=== PATIENT | male | born 1960 | race Caucasian/White ===

== ENCOUNTER 2019-01-20 10:05 | Emergency (ER) | payer OTHER ==
[2019-01-20] MEDS ORDERED: NA CHLORIDE 0.9% 1,000 ML ONE ×3 (10:49→12:42)
[2019-01-20 10:58] LABS: Absolute Lymphocytes (CBC) 2.5 K/uL (0.7-4.9); Basophils % 0.5 % (0-1.3); Hematocrit 40.3 % (39.6-49.0); MPV 9.2 fL (7.6-11.3); RBC Red Blood Cell Count 5.14 M/uL (4.33-5.43)
[2019-01-20 10:59] LABS: Protime INR 1.24
--- NOTE | 2019-01-20 11:13 | RAD REPORT ---
EXAM DESCRIPTION: [place] Single View01/20/2019 10:40 am CLINICAL HISTORY: Chest pain COMPARISON: 2011 FINDINGS: The lungs appear clear of acute infiltrate. The heart is normal size IMPRESSION: No acute abnormalities displayed
[2019-01-20 11:18] LABS: ALT/SGPT 36 U/L (12-78); AST/SGOT 21 U/L (15-37); Albumin 3.4 g/dL (3.4-5.0); Alkaline Phosphatase 103 U/L (45-117); BUN Blood Urea Nitrogen 24 mg/dL (7-18); Bicarbonate 25 mmol/L (21-32); Bilirubin Direct 0.2 mg/dL (0-0.2); Glucose Level 138 mg/dL (74-106); Magnesium 2.1 mg/dL (1.8-2.4); Potassium 4.5 mmol/L (3.5-5.1); Protein, Total 6.9 g/dL (6.4-8.2); Sodium Level 137 mmol/L (136-145); Troponin (Emerg Dept Use Only) < 0.02 ng/mL (0.0-0.045)
--- NOTE | 2019-01-20 12:56 | EDPHYS ---
Physician Documentation [facility] Name: Juma Tirado Age: 58 yrs Sex: Male : 1960 Arrival Date: 01/20/2019 Time: 10:06 Bed 13 Private MD: ED Physician Armando Luque HPI: 01/20 10:36 This 58 yrs old Male presents to ER via Wheelchair with complaints of pm1 Dizziness, Low Blood Pressure. 10:36 The patient presents with dizziness. Onset: The symptoms/episode began/occurred 1 pm1 week(s) ago. Context: occurred at home, just prior to the episode the patient experienced no apparent symptoms. Modifying factors: the symptoms are aggravated by changing position, not eating and drinking well for the past week. Associated signs and symptoms: Pertinent negatives: abdominal pain, chest pain, numbness, shortness of breath, tingling. Severity of symptoms: Pain is currently a 0 / 10. Patient's baseline: Neuro: alert and fully oriented, Motor: no deficits, Ambulation: walks without assistance. The patient has been recently seen by a physician: Right knee surgery last Tuesday. Patient reports that he got nauseated and dizzy from the pain medications that he is taking for his right knee surgery. So he has not been eating or drinking well as a result of the nausea and dizziness. Has recently stopped taking the pain medications. Dizziness with changing positions and he noticed that his blood pressure was low this morning. Took 2 of his 3 blood pressure medications this AM. Ran out of olmesartan two days ago. Historical: - Allergies: 10:13 No Known Allergies; hb - Immunization history:: Adult Immunizations up to date. - Social history:: Smoking status: Patient/guardian denies using tobacco. - Ebola Screening: : No symptoms or risks identified at this time. ROS: 10:36 Constitutional: Negative for fever, chills, and weight loss, Eyes: Negative for injury, pm1 pain, redness, and discharge, ENT: Negative for injury, pain, and discharge, Neck: Negative for injury, pain, and swelling, Cardiovascular: Negative for chest pain, palpitations, and edema, Respiratory: Negative for shortness of breath, cough, wheezing, and pleuritic chest pain, Back: Negative for injury and pain, MS/Extremity: Negative for injury and deformity, Skin: Negative for injury, rash, and discoloration. 10:36 Abdomen/GI: Positive for nausea, Negative for abdominal pain, vomiting, diarrhea, constipation. 10:36 Neuro: Positive for dizziness, Negative for headache, numbness, tingling, weakness. Exam: 10:36 Constitutional: This is a well developed, well nourished patient who is awake, alert, pm1 and in no acute distress. Head/Face: Normocephalic, atraumatic. Neck: Trachea midline, no thyromegaly or masses palpated, and no cervical lymphadenopathy. Supple, full range of motion without nuchal rigidity, or vertebral point tenderness. No Meningismus. Chest/axilla: Normal chest wall appearance and motion. Nontender with no deformity. No lesions are appreciated. Cardiovascular: Regular rate and rhythm with a normal S1 and S2. No gallops, murmurs, or rubs. Normal PMI, no JVD. No pulse deficits. Respiratory: Lungs have equal breath sounds bilaterally, clear to auscultation and percussion. No rales, rhonchi or wheezes noted. No increased work of breathing, no retractions or nasal flaring. Abdomen/GI: Soft, non-tender, with normal bowel sounds. No distension or tympany. No guarding or rebound. No evidence of tenderness throughout. Back: No spinal tenderness. No costovertebral tenderness. Full range of motion. Skin: Warm, dry with normal turgor. Normal color with no rashes, no lesions, and no evidence of cellulitis. MS/ Extremity: Pulses equal, no cyanosis. Neurovascular intact. Full, normal range of motion. 10:36 Neuro: Orientation: is normal, Mentation: is normal, Motor: is normal, moves all fours, strength is normal, strength is 5/5 in all extremities, Sensation: is normal, no obvious gross deficits. Vital Signs: 10:12 BP 108 / 96; Pulse 96; Resp 16; Temp 97.1; Pulse Ox 100% on R/A; Weight 127.01 kg; hb Height 6 ft. 2 in. (187.96 cm); Pain 3/10; 11:44 BP 93 / 59 Supine; Pulse 73; wh 11:44 BP 93 / 58 Sitting; Pulse 84; wh 11:44 BP 94 / 46 Standing; Pulse 94; wh 12:30 BP 120 / 56 Supine; Pulse 72; wh 12:30 BP 102 / 71 Sitting; Pulse 84; wh 12:30 BP 95 / 60 Standing; Pulse 89; wh 13:28 BP 117 / 68 Supine; Pulse 70; wh 13:28 BP 117 / 62 Sitting; Pulse 81; wh 13:28 BP 118 / 76 Standing; Pulse 84; wh 10:12 Body Mass Index 35.95 (127.01 kg, 187.96 cm) hb MDM: 10:22 Patient medically screened. pm1 11:19 Data reviewed: vital signs. Data interpreted: Pulse oximetry: on room air is 100 %. pm1 Interpretation: normal. 12:42 Counseling: I had a detailed discussion with the patient and/or guardian regarding: the pm1 historical points, exam findings, and any diagnostic results supporting the discharge/admit diagnosis, lab results, the need for outpatient follow up, management of blood pressure medications, to return to the emergency department if symptoms worsen or persist or if there are any questions or concerns that arise at home. 01/20 10:28 Order name: Basic Metabolic Panel; Complete Time: 11:18 pm1 01/20 10:28 Order name: CBC with Diff; Complete Time: 11:15 pm01/20 10:28 Order name: LFT's; Complete Time: 11:18 pm1 01/20 10:28 Order name: Magnesium; Complete Time: 11:18 pm1 01/20 10:28 Order name: PT-INR; Complete Time: 11:15 pm1 01/20 10:28 Order name: Troponin (emerg Dept Use Only); Complete Time: 11:18 pm1 01/20 10:28 Order name: XRAY Chest (1 view); Complete Time: 11:15 pm1 01/20 10:28 Order name: EKG; Complete Time: 10:29 pm1 01/20 10:28 Order name: Cardiac monitoring; Complete Time: 10:54 pm1 01/20 10:28 Order name: EKG - Nurse/Tech; Complete Time: 10:54 pm1 01/20 10:28 Order name: IV Saline Lock; Complete Time: 10:46 pm1 01/20 10:28 Order name: Labs collected and sent; Complete Time: 10:46 pm1 01/20 10:28 Order name: O2 Per Protocol; Complete Time: 10:54 pm1 01/20 10:28 Order name: O2 Sat Monitoring; Complete Time: 10:54 pm1 01/20 10:28 Order name: Orthostatic Blood Pressure; Complete Time: 11:30 pm1 Administered Medications: 11:00 Drug: NS 0.9% 1000 ml Route: IV; Rate: 1000 ml; Site: left antecubital; 13:30 Follow up: Response: No adverse reaction; IV Status: Completed infusion 11:00 Drug: NS 0.9% 1000 ml Route: IV; Rate: 1000 ml; Site: left antecubital; 13:30 Follow up: Response: No adverse reaction; IV Status: Completed infusion 12:46 Drug: NS 0.9% 1000 ml Route: IV; Rate: 1000 ml; Site: left antecubital; 13:31 Follow up: Response: No adverse reaction; IV Status: Completed infusion Disposition: 13:37 Co-signature as Attending Physician, Armando Luque MD. rn Disposition: 01/20/19 12:55 Discharged to Home. Impression: Dehydration, Orthostatic hypotension. - Condition is Stable. - Discharge Instructions: Dehydration, Adult, Orthostatic Hypotension, Rehydration, Adult. - Medication Reconciliation Form, Thank You Letter, Antibiotic Education, Prescription Opioid Use form. - Follow up: Emergency Department; When: As needed; Reason: Worsening of condition. Follow up: Private Physician; When: 2 - 3 days; Reason: Recheck today's complaints, Continuance of care, Re-evaluation by your physician. - Problem is new. - Symptoms have improved. Signatures: Dispatcher [employer] EDMS Armando Luque MD MD rn Marinas, Patrick, SURAJ DIRECTOR SOFTWARE pm1 Rajwinder Garcias RN RN hb Habalo, Winsy Corrections: (The following items were deleted from the chart) 13:31 12:55 01/20/2019 12:55 Discharged to Home. Impression: Dehydration; Orthostatic wh hypotension. Condition is Stable. Forms are Medication Reconciliation Form, Thank You Letter, Antibiotic Education, Prescription Opioid Use. Follow up: Emergency Department; When: As needed; Reason: Worsening of condition. Follow up: Private Physician; When: 2 - 3 days; Reason: Recheck today's complaints, Continuance of care, Re-evaluation by your physician. Problem is new. Symptoms have improved. pm1
--- NOTE | 2019-01-20 12:56 | ER ---
Nurse's Notes [facility] Name: Juma Tirado Age: 58 yrs Sex: Male : 1960 Arrival Date: 01/20/2019 Time: 10:06 Bed 13 Private MD: Diagnosis: Dehydration;Orthostatic hypotension Presentation: 01/20 10:10 Presenting complaint: Dizziness and nausea x 1 week, home BP 67/40 today. Pt is 1 s/p hb total right knee replacement by Dr. Batista. Transition of care: patient was not received from another setting of care. Onset of symptoms was January 20, 2019. Risk Assessment: Do you want to hurt yourself or someone else? Patient reports no desire to harm self or others. Initial Sepsis Screen: Does the patient meet any 2 criteria? No. Patient's initial sepsis screen is negative. Does the patient have a suspected source of infection? No. Patient's initial sepsis screen is negative. Care prior to arrival: None. 10:10 Method Of Arrival: Wheelchair hb 10:10 Acuity: DAVIDSON 3 hb Historical: - Allergies: 10:13 No Known Allergies; hb - Immunization history:: Adult Immunizations up to date. - Social history:: Smoking status: Patient/guardian denies using tobacco. - Ebola Screening: : No symptoms or risks identified at this time. Screenin:20 Abuse screen: Denies threats or abuse. Denies injuries from another. Nutritional wh screening: No deficits noted. Tuberculosis screening: No symptoms or risk factors identified. Fall Risk None identified. Assessment: 10:45 General: Appears in no apparent distress. Behavior is calm, cooperative, appropriate wh for age. Pain: Complains of pain in Right Knee Pain does not radiate. Pain currently is 4 out of 10 on a pain scale. Quality of pain is described as aching. Neuro: Level of Consciousness is awake, alert, obeys commands, Oriented to person, place, time, situation, Appropriate for age. Cardiovascular: Heart tones S1 S2. Respiratory: Airway is patent Respiratory effort is even, unlabored, Respiratory pattern is regular, symmetrical, Breath sounds are clear bilaterally. GI: Abdomen is flat, non-distended. : No signs and/or symptoms were reported regarding the genitourinary system. EENT: No signs and/or symptoms were reported regarding the EENT system. Derm: Skin is intact, is healthy with good turgor, Skin is pink, warm \T\ dry. normal. Musculoskeletal: Circulation, motion, and sensation intact. 11:46 Reassessment: Patient appears in no apparent distress at this time. No changes from previously documented assessment. Patient and/or family updated on plan of care and expected duration. Pain level reassessed. Patient is alert, oriented x 3, equal unlabored respirations, skin warm/dry/pink. 12:30 Reassessment: Patient appears in no apparent distress at this time. No changes from wh previously documented assessment. Patient and/or family updated on plan of care and expected duration. Pain level reassessed. Patient is alert, oriented x 3, equal unlabored respirations, skin warm/dry/pink. Orthostatics done notified Provider of results Patient states feeling better. Patient states symptoms have improved. 13:28 Reassessment: Patient appears in no apparent distress at this time. No changes from previously documented assessment. Patient and/or family updated on plan of care and expected duration. Pain level reassessed. Patient is alert, oriented x 3, equal unlabored respirations, skin warm/dry/pink. Patient states feeling better. Patient states symptoms have improved. Vital Signs: 10:12 BP 108 / 96; Pulse 96; Resp 16; Temp 97.1; Pulse Ox 100% on R/A; Weight 127.01 kg; hb Height 6 ft. 2 in. (187.96 cm); Pain 3/10; 11:44 BP 93 / 59 Supine; Pulse 73; wh 11:44 BP 93 / 58 Sitting; Pulse 84; wh 11:44 BP 94 / 46 Standing; Pulse 94; wh 12:30 BP 120 / 56 Supine; Pulse 72; wh 12:30 BP 102 / 71 Sitting; Pulse 84; wh 12:30 BP 95 / 60 Standing; Pulse 89; wh 13:28 BP 117 / 68 Supine; Pulse 70; wh 13:28 BP 117 / 62 Sitting; Pulse 81; wh 13:28 BP 118 / 76 Standing; Pulse 84; wh 10:12 Body Mass Index 35.95 (127.01 kg, 187.96 cm) hb ED Course: 10:06 Patient arrived in ED. as 10:12 Triage completed. hb 10:12 Arm band placed on. hb 10:14 Marinas, Mauro, PIPELINE INTEGRITY ENGINEER is PHCP. pm1 10:14 Armando Luque MD is Attending Physician. pm1 10:20 Patient has correct armband on for positive identification. Bed in low position. Call light in reach. Side rails up X 1. Pulse ox on. NIBP on. 10:29 Vickie Sears is Primary Nurse. 10:30 Primary Nurse role handed off by Vickie Sears 10:30 Chary Martin, RIO is Primary Nurse. 10:40 XRAY Chest (1 view) In Process Unspecified. EDMS 10:46 Initial lab(s) drawn, by va, sent to lab. Inserted saline lock: 20 gauge in left em1 antecubital area, using aseptic technique. Blood collected. 10:54 EKG done, by ED staff, reviewed by Mauro Longoria NP. em1 13:27 No provider procedures requiring assistance completed. IV discontinued, intact, bleeding controlled, No redness/swelling at site. Administered Medications: 11:00 Drug: NS 0.9% 1000 ml Route: IV; Rate: 1000 ml; Site: left antecubital; 13:30 Follow up: Response: No adverse reaction; IV Status: Completed infusion 11:00 Drug: NS 0.9% 1000 ml Route: IV; Rate: 1000 ml; Site: left antecubital; 13:30 Follow up: Response: No adverse reaction; IV Status: Completed infusion 12:46 Drug: NS 0.9% 1000 ml Route: IV; Rate: 1000 ml; Site: left antecubital; 13:31 Follow up: Response: No adverse reaction; IV Status: Completed infusion Outcome: 12:55 Discharge ordered by . pm1 13:27 Discharged to home ambulatory, with family. 13:27 Condition: stable 13:27 Discharge instructions given to patient, family, Instructed on discharge instructions, follow up and referral plans. POC Dehydration Demonstrated understanding of instructions, follow-up care, POC 13:31 Patient left the ED. Signatures: Dispatcher [employer] EDMS Vicki Ovalles Eric em1 Chary Martin, Mauro Mena RN, NP PIPELINE INTEGRITY ENGINEER pm1 Rajwinder Garcias RN RN Vickie Sears
[2019-01-20 15:45] VITALS: TEMP 97.1; O2SAT 100
[2019-01-20 15:49] VITALS: BP 117/62
--- NOTE | 2019-01-20 16:12 | EKG ---
Test Date: 2019-01-20 Test Time: 10:51:32 Application Support Consultant: DIGNA MEASUREMENT RESULTS: Intervals: Rate: 80 WY: 184 QRSD: 86 QT: 392 QTc: 452 [place]: P: 35 WY: 184 QRS: -21 T: 34 INTERPRETIVE STATEMENTS: Normal sinus rhythm Normal ECG Compared to ECG 09/15/2004 12:01:00 No significant changes Electronically Signed On 01-20-19 16:12:03 SENIOR ORACLE DBA by Manjit Colunga
== END 2019-01-20 13:31 | disposition home or self-care (01) ==
LOC: ER 10:05
DX: E86.0 Dehydration (principal); I95.1 Orthostatic hypotension
CPT/HCPCS: 96361; 93005; 85025; 80048; 36415; 83735; 85610; 80076; 84484; 71045; 96360; 99284; J7030 ×3

== ENCOUNTER 2019-12-21 12:34 | Day surgery (SDC) | payer OTHER ==
--- NOTE | 2019-12-20 12:51 | RAD REPORT ---
EXAM DESCRIPTION: RAD - Chest Pa And Lat (2 Views) - 12/20/2019 12:43 pm CLINICAL HISTORY: Preop, patient pending hernia surgery, history of asthma and hypertension COMPARISON: Portable December 2018, two view chest June 2011 TECHNIQUE: Frontal and lateral views of the chest were obtained. FINDINGS: The lungs are clear. Interstitial pattern not clearly different from comparison studies. Heart size is normal and central vasculature is within normal limits. No pleural effusion or pneumot horax seen. No acute bony finding noted. No aortic abnormality. No significant changes from compar naeem. IMPRESSION: No acute cardiopulmonary process.
[2019-12-21] MEDS ORDERED: CEFAZOLIN/SWI 1gm 1 GM/10 ML SYR ONE (13:03)
[2019-12-21] MEDS ORDERED: Ringers Lactate 1,000 ML IV ONE (13:03)
[2019-12-21] MEDS ORDERED: propofoL 200 MG/20 ML VIAL IV ONE ×2 (14:42→14:57)
[2019-12-21] MEDS ORDERED: FENTANYL CITR 100 MCG/2 ML ONE (14:42)
[2019-12-21] MEDS ORDERED: MIDAZOLAM HCL 2 MG/2 ML INJ ONE (14:43)
[2019-12-21] MEDS ORDERED: ROCURONIUM 50 MG/5 ML VIAL IV ONE (14:44)
[2019-12-21] MEDS ORDERED: LIDOCAINE 2% MPF 5 ML VIAL ONE (14:44)
--- NOTE | 2019-12-21 15:06 | P.BOP ---
Preoperative diagnosis: incarcerated tender umbilical hernia, morbid obesity Postoperative diagnosis: same Primary procedure: Open repair of incarcerated tender umbilical hernia Electrotyper Apprentice: Lisa Kennedy (Davi) Estimated blood loss: <10cc Specimen: sac Findings: incarcerated omentum Anesthesia: General Complications: None Transferred to: Recovery Room Condition: Good
[2019-12-21] MEDS ORDERED: dexAMETHasone 4 MG/ML VIAL ONE (15:20)
[2019-12-21] MEDS ORDERED: KETOROLAC 30 MG/ML INJ ONE (15:22)
[2019-12-21] MEDS ORDERED: CODEINE 30MG/APAP 300MG TAB PO ONE (16:00)
[2019-12-21] MEDS ORDERED: CODEINE 30MG/APAP 300MG TAB ONE (16:16)
[2019-12-21 16:56] VITALS: BP 128/67; TEMP 96.7; O2SAT 98
--- NOTE | 2019-12-21 22:36 | OP ---
Date of Procedure: 12/21/2019 Surgeon: Roderick Ovalles MD Interior Decorator Paperhanging: Lisa Kennedy. Preoperative Diagnoses: Incarcerated tender umbilical hernia, morbid obesity. Postoperative Diagnoses: Incarcerated tender umbilical hernia, morbid obesity. Procedure: Open repair of an incarcerated tender umbilical hernia. Estimated Blood Loss: Less than 10 cc. Findings: Incarcerated omentum and umbilical hernia. Indications: This is the case of a 59-year-old patient, who comes to us with an incarcerated tender umbilical hernia. Benefits, alternatives, and risks of repair were fully explained, which include, b ut not limited to infection, bleeding, damage to adjacent structures, anesthesia complication, recurr ence, [place], and even . He also understands this may not relieve any symptoms. He might need more than one surgical intervention. He understood and signed a consent. He understands the importance also of no heavy lifting and also losing some weight. Procedure In Detail: The patient was brought to the operating room and placed in supine position. A nesthesia was done without complication. A time-out was called. Abdomen was prepped and draped in a sterile fashion. Incision was made in the infraumbilical region. Incision was carried down to fasc ia. We noticed umbilical hernia to be present. Carefully, the umbilical sac was removed from umbili kiersten skin. Umbilical hernia was opened and we noticed incarcerated omentum. Some of them have to be resected and allowed to reduced back into the abdominal cavity after ligation. Before it retracted b ack into the abdominal cavity, we make sure there was no bleeding on it. After that, we proceeded to clean the fascia edges and we proceeded to closed that with #1 Prolene in [id number] fashion mu ltiple times. The patient tolerated the procedure well. Area was irrigated, hemostasis obtained, an d local anesthesia was applied and then we placed 0 chromic for the subcutaneous tissue in a subcutic ular fashion with Steri-Strips on top. Sponge count and instrument counts were correct. The patient tolerated the procedure well. The patient in his way to recovery in stable condition. Disposition: Home. Activity: As tolerated. No heavy lifting. Plan: Follow up in my office in 1 week. Call for appointment at [phone]. Medications: Include Tylenol No. 3 q.4 hours p.r.n. pain, Bactrim DS p.o. b.i.d. HM/VIETL Voice ID: [id number] Report ID: [id number]
== END 2019-12-21 16:30 | disposition home or self-care (01) ==
LOC: OR 12:34
PROVIDERS: ATTEND Surgery
PROC: 0WQF0ZZ Repair Abdominal Wall, Open Approach (ICD-10-PCS; principal; 2019-12-21 15:00)
DX: K42.0 Umbilical hernia with obstruction, without gangrene (principal); I10 Essential (primary) hypertension; K21.9 Gastro-esophageal reflux disease without esophagitis; J45.909 Unspecified asthma, uncomplicated; E66.01 Morbid (severe) obesity due to excess calories; Z68.34 Body mass index [BMI] 34.0-34.9, adult; Z20.828 Contact with and (suspected) exposure to other viral communicable diseases; Z80.1 Family history of malignant neoplasm of trachea, bronchus and lung; Z82.49 Family history of ischemic heart disease and other diseases of the circulatory system
CPT/HCPCS: 88302; 71046; 49587; U0002; J2704 ×2; J1100; J2250; J3010; J0690; J7120